=== PATIENT | male | born 1965 | race African-American/Black ===

== ENCOUNTER 2017-11-13 10:19 | Emergency (ER) | payer SELFPAY ==
[~2017-11-13] VITALS: Ht 170.2 cm; Wt 84.0 kg
[~2017-11-13 10:19] MED LIST: Z.0.NO CURRENT MEDS
[2017-11-13 10:33] VITALS: BP 142/65; PULSE 116; RESP 18; TEMP 99.2; O2SAT 98
--- NOTE | 2017-11-13 11:17 | PD ---
HPI Chief Complaint: Respiratory Symptoms Time Seen by Provider: 10:43 Travel History International Travel<30 days: No Contact w/Intl Traveler<30days: No Traveled to known affect area: No History of Present Illness HPI 52-year-old male presents to the emergency room for evaluation of mildly productive cough for the past week. Patient states symptoms started office fever, chills, body aches, cough, and sore throat. Most of his symptoms have resolved but the cough is lingering. States he initially had very thick mucus but it seems to have thinned out especially last night. He has been taking multiple [id number] medications without relief in symptoms. He is also using albuterol treatments at home with mild relief in symptoms. He reports pain with inspiration. Denies any chronic medical conditions or daily medications. Denies cardiac or lung disease. [facility] Social History Tobacco Use: No Allergies-Medications (Allergen,Severity, Reaction): Coded Allergies: No Known Allergies (Unverified Adverse Reaction, Unknown, 11/13/17) Reported Meds & Prescriptions Reported Meds & Active Scripts Active Azithromycin 250 Mg Tab 250 Mg PO DIRECTED Take 2 tabs (500 mg) on day 1 then 1 tab daily x 4 days. Guaiatussin AC Liq (Guaifenesin-Codeine Liq) 100-10 Mg/5 Ml Syrp 10 Ml PO HS PRN Tessalon Perles (Benzonatate) 100 Mg Cap 100 Mg PO TID PRN Reported No Current Meds (Miscellaneous Medication) Misc Review of Systems Except as stated in HPI: all other systems reviewed are Neg Physical Exam Narrative GENERAL: Well-nourished, well-developed male in no acute distress. Afebrile. Ambulatory. SKIN: Focused skin assessment warm/dry. HEAD: Normocephalic. EYES: No scleral icterus. No injection or drainage. ENT: Mucosa pink and moist. No erythema or exudates. No uvular edema. No uvular , palatal, or tonsillar deviation. Airway patent. Nasal turbinates appear normal without nasal blood, purulent drainage or septal hematoma. EARS: Bilateral pinnae and external canals appear within normal limits. Bilateral tympanic membranes without erythema, dullness or perforation. NECK: Supple, trachea midline. No JVD or lymphadenopathy. CARDIOVASCULAR: Regular rate and rhythm without murmurs, gallops, or rubs. RESPIRATORY: Breath sounds equal bilaterally. No accessory muscle use. No crackles, rales, wheezes, or rhonchi. Data Data Last Documented VS Vital Signs Date Time Temp Pulse Resp B/P (MAP) Pulse Ox O2 Delivery O2 Flow Rate FiO2 11/13/17 11:30 95 18 96 11/13/17 10:33 99.2 142/65 (90) Orders Orders Chest, Pa & Lat (11/13/17 ) MDM Medical Decision Making Medical Screen Exam Complete: Yes Emergency Medical Condition: Yes Medical Record Reviewed: Yes Differential Diagnosis Pneumonia, flu, bronchitis, upper respiratory infection Narrative Course 52-year-old male presents to the emergency room for evaluation of mildly productive cough for the past week. Started off as an upper respiratory infection but the cough has lingered. No recent fevers. Physical exam is reassuring. Patient coughing occasionally with no increased work of breathing. Vital signs stable. Lung sounds clear and equal bilaterally. Chest x-ray shows right upper lobe pneumonia. He is stable for outpatient treatment. Patient discharged with prescriptions for azithromycin, Tessalon Perles, and cough syrup. Told to follow-up with a primary care physician or return for worsening symptoms. He understands and agrees to plan. Diagnosis Primary Impression: Community acquired pneumonia Qualified Codes: J18.1 - Lobar pneumonia, unspecified organism Referrals: Primary Care Physician Additional Instructions: Rest and drink plenty of fluids. Tessalon Perles as directed, as needed for cough. Cough syrup at night for symptoms. Follow-up with a primary care physician. Return to the emergency room for worsening symptoms. Scripts Azithromycin (Azithromycin) 250 Mg Tab 250 MG PO DIRECTED for Infection, #6 TAB 0 Refills Take 2 tabs (500 mg) on day 1 then 1 tab daily x 4 days. Prov: Arron Stahl MD 11/13/17 Guaifenesin-Codeine Liq (Guaiatussin AC Liq) 100-10 Mg/5 Ml Syrp 10 ML PO HS Y for COUGH, #150 ML Prov: Arron Stahl MD 11/13/17 Benzonatate (Tessalon Perles) 100 Mg Cap 100 MG PO TID Y for COUGH, #15 CAP 0 Refills Prov: Arron Stahl MD 11/13/17 Disposition: 01 DISCHARGE HOME Condition: Stable Gege Robles Nov 13, 2017 11:17
[2017-11-13] MEDS ORDERED: GUAISYP5 PO (11:18)
[2017-11-13] MEDS ORDERED: BENZ100 PO (11:18)
[2017-11-13 11:30] VITALS: PULSE 95; RESP 18; O2SAT 96
--- NOTE | 2017-11-13 12:54 | RADRPT ---
EXAM DATE/TIME: 11/13/2017 11:41 [place] COMPARISON: No previous studies available for comparison. INDICATIONS : Cough. Patient complains of difficulty breathing and pressure in chest. Patient is only able to take shallow breaths. MEDICAL HISTORY : Patient states he had the flu for a week. SURGICAL HISTORY : None. ENCOUNTER: Initial ACUITY: 1 week PAIN SCORE: 0/10 LOCATION: Bilateral chest FINDINGS: Airspace consolidation in the right upper lobe. Cardiomediastinal contours are within normal limits. Bony thorax is intact. CONCLUSION: 1. Right upper lobe airspace consolidation consistent with pneumonia given the above history. Homar Marshall MD on November 13, 2017 at 12:51 Board Certified Radiologist. This report was verified electronically.
[2017-11-13] MEDS ORDERED: AZIT250T3 PO (12:57)
== END 2017-11-13 13:26 | disposition home or self-care (01) ==
LOC: NEPK 10:19
DX: J18.1 Lobar pneumonia, unspecified organism (principal)
CPT/HCPCS: 71046; 99283